=== PATIENT | male | born 1960 | race Caucasian/White ===

== ENCOUNTER 2016-09-02 14:35 | Emergency (ER) | payer SELFPAY ==
[2016-09-02 14:36] VITALS: BP 129/65; PULSE 101; RESP 16; TEMP 98.2; O2SAT 95
[2016-09-02] MEDS ORDERED: BENZ100 PO (16:03)
[2016-09-02] MEDS ORDERED: PRED50 PO (16:03)
[2016-09-02] MEDS ORDERED: ALBUAER3 INH (16:03)
--- NOTE | 2016-09-02 16:03 | PD ---
HPI . cough, congestion x 3 weeks Chief Complaint: Cold / Flu Symptoms Time Seen by Provider: 15:56 Travel History International Travel<30 days: No Contact w/Intl Traveler<30days: No Traveled to known affect area: No History of Present Illness HPI 56-year-old male here with complaints of cough and congestion for about 3 weeks. Patient says he's been coughing significantly for the past 3 weeks. Initially the cough was productive with some yellow mucus, now it is somewhat dry but occasionally has some clear phlegm. He thinks he may have had a fever sometime back, but never checked his temperature. He denies any fever or chills at the moment. He has no other complaints. His primary care provider is Dr. Sree Guthrie. [facility] Past Medical History Hypertension: Yes Migraines: Yes ?: Not Social History Alcohol Use: No Tobacco Use: No Substance Use: No Allergies-Medications (Allergen,Severity, Reaction): Coded Allergies: No Known Allergies (Unverified , 09/02/16) Review of Systems General / Constitutional: No: Fever Eyes: No: Visual changes HENT: Positive: Congestion, No: Headaches Cardiovascular: No: Chest Pain or Discomfort Respiratory: Positive: Cough, No: Shortness of Breath Gastrointestinal: No: Abdominal Pain Genitourinary: No: Dysuria Musculoskeletal: No: Pain Skin: No Rash Neurologic: No: Weakness Psychiatric: No: Depression Endocrine: No: Polydipsia Hematologic/Lymphatic: No: Easy Bruising Physical Exam Narrative GENERAL: AAO x 3, no acute distress, Well-nourished, well-developed patient. SKIN: Warm and dry. No visible rashes or bruising. HEAD: Normocephalic and atraumatic. EYES: No scleral icterus. No injection or drainage. EOM intact, PERRLA ENT: No nasal drainage noted. Mucous membranes pink. Airway patent. TMs normal bilaterally. Posterior pharynx without erythema, edema or exudates. NECK: Supple, trachea midline. No JVD. No lymphadenopathy. CARDIOVASCULAR: Regular rate and rhythm without murmurs, gallops, or rubs. HR on exam 88 RESPIRATORY: Breath sounds equal bilaterally. No accessory muscle use. No rhonchi or rales. No wheezing on auscultation. GASTROINTESTINAL: Abdomen soft, non-tender, nondistended. EXTREMITIES: No cyanosis or edema. BACK: Nontender without obvious deformity. No CVA tenderness. PSYCH: AAO x 3, normal affect. Data Data Last Documented VS Vital Signs Date Time Temp Pulse Resp B/P Pulse Ox O2 Delivery O2 Flow Rate FiO2 09/02/16 14:36 98.2 101 16 129/65 95 MDM Medical Decision Making Medical Screen Exam Complete: Yes Emergency Medical Condition: Yes Medical Record Reviewed: Yes Differential Diagnosis Bronchitis, less likely pneumonia, sinusitis Narrative Course 56-year-old male here with complaints of cough and congestion for about 3 weeks. Patient says he's been coughing significantly for the past 3 weeks. Initially the cough was productive with some yellow mucus, now it is somewhat dry but occasionally has some clear phlegm. He thinks he may have had a fever sometime back, but never checked his temperature. He denies any fever or chills at the moment. He has no other complaints. His primary care provider is Dr. Sree Guthrie. Patient seen and examined. He appears to have a bronchitis. His lungs are clear on auscultation. I do not suspect any pneumonia. I've advised him that he can use prednisone, Tessalon Perles and pro-air inhaler. We discussed pricing as he had some concerns. Advise follow-up with his primary care provider. Discussed with the cough can linger 6-8 weeks. Patient verbalized understanding of instructions, questions were answered, and thanked me for their care. I advised them if their condition worsens, please return to the nearest emergency room for further care. Diagnosis Primary Impression: Acute bronchitis Qualified Code: J20.9 - Acute bronchitis, unspecified organism Patient Instructions: Acute Bronchitis (ED), General Instructions Additional Instructions: As we discussed the cough can last 6-8 weeks. Take medications as prescribed. If you are a smoker, try to quit. Follow up with your primary care provider. If you develop sudden onset or worsening of shortness or breath, please go to the nearest emergency room. Please return to emergency department if your symptoms return or worsen. Follow up with your primary care provider. Take medications as prescribed. Scripts Albuterol 8.5 GM Inh (Proair Hfa 8.5 GM Inh)90 Mcg/Act Aer2 Puff INH Q6H PRN ( SHORTNESS OF BREATH) #1 INHALER Ref 0 108 mcg/actuation Prov:Tobias De Souza MD 09/02/16 Benzonatate (Tessalon Perles)100 Mg [id number] Mg PO TID PRN (COUGH) #21 CAP Ref 0 Prov:Tobias De Souza MD 09/02/16 Prednisone 50 Mg Tab50 Mg PO DAILY #5 TAB Prov:Tobias De Souza MD 09/02/16 Disposition: 01 DISCHARGE HOME Condition: Stable Lauren Deras Sep 02, 2016 16:03
== END 2016-09-02 16:22 | disposition home or self-care (01) ==
LOC: NETRI 14:35
DX: J20.9 Acute bronchitis, unspecified (principal); I10 Essential (primary) hypertension; Z86.69 Personal history of other diseases of the nervous system and sense organs
CPT/HCPCS: 99282